=== PATIENT | female | born 1970 | race Caucasian/White ===

== ENCOUNTER 2017-07-10 07:52 | Emergency (ER) | payer MEDICAID ==
[2017-07-10 07:53] VITALS: BMI 25.6
[2017-07-10 08:05] VITALS: RESP 16; TEMP 97.7
--- NOTE | 2017-07-10 08:42 | ED PDOC ---
Arrival/HPI - General Chief Complaint: Female Genitourinary Time Seen by Provider: 07/10/17 08:12 Historian: Patient - History of Present Illness Narrative History of Present Illness (Text): 07/10/17 13:44 A 47 year old female, whose past medical history includes UTI, kidney stones, and nephronophthisis, presents to the emergency department for dysuria, which began 2 days ago. The patient denies any blood in the urine, nausea, vomiting, vaginal discharge, vaginal bleeding, or any other complaints at this time. Time/Duration: < week (x 3 days ) Symptom Onset: Gradual Symptom Course: Unchanged Quality: Burning Context: Home Past Medical History - Provider Review Nursing Documentation Reviewed: Yes - Infectious Disease Hx of Infectious Diseases: None - Tetanus Immunization Tetanus Immunization: Unknown - Past Medical History Past Medical History: No Previous - Cardiac Hx Cardiac Disorders: No - Pulmonary Hx Respiratory Disorders: No - Neurological Hx Neurological Disorder: No - HEENT Hx HEENT Disorder: No - Renal Hx Kidney Stones: Yes - Endocrine/Metabolic Hx Endocrine Disorders: No - Hematological/Oncological Hx Blood Disorders: No - Integumentary Hx Dermatological Disorder: No - Musculoskeletal/Rheumatological Hx Musculoskeletal Disorders: No Hx Falls: No - Gastrointestinal Hx Gastrointestinal Disorders: No - Genitourinary/Gynecological Hx Genitourinary Disorders: Yes Hx Urinary Tract Infection: Yes - Psychiatric Hx Psychophysiologic Disorder: Yes Hx Depression: Yes Hx Emotional Abuse: No Hx Physical Abuse: No Hx Substance Use: No - Surgical History Hx Hysterectomy: Yes (2006) Other/Comment: c section - Suicidal Assessment Feels Threatened In Home Enviroment: No Family/Social History - Physician Review Nursing Documentation Reviewed: Yes Family/Social History: No Known Family HX Smoking Status: Heavy Smoker > 10 Cigarettes Daily Hx Alcohol Use: No Hx Substance Use: No Allergies/Home Meds Allergies/Adverse Reactions: Allergies No Known Allergies Allergy (Verified 03/06/15 20:50) Review of Systems - Physician Review All systems were reviewed & negative as marked: Yes - Review of Systems Gastrointestinal: absent: Nausea, Vomiting Genitourinary Female: Dysuria. absent: Hematuria, Vaginal Bleeding, Vaginal Discharge Physical Exam Vital Signs Reviewed: Yes Vital Signs Temp Pulse Resp BP Pulse Ox 07/10/17 09:29 73 16 114/70 99 07/10/17 08:02 97.7 F 72 16 119/77 98 Temperature: Afebrile Blood Pressure: Normal Pulse: Regular Respiratory Rate: Normal Appearance: Positive for: Well-Appearing, Non-Toxic, Comfortable Pain Distress: None Mental Status: Positive for: Alert and Oriented X 3 - Systems Exam Head: Present: Atraumatic, Normocephalic Pupils: Present: PERRL Extroacular Muscles: Present: EOMI Conjunctiva: Present: Normal Mouth: Present: Moist Mucous Membranes Neck: Present: Normal Range of Motion Respiratory/Chest: Present: Clear to Auscultation, Good Air Exchange. No: Respiratory Distress, Accessory Muscle Use Cardiovascular: Present: Regular Rate and Rhythm, Normal S1, S2. No: Murmurs Abdomen: Present: Normal Bowel Sounds. No: Tenderness, Distention, Peritoneal Signs Back: Present: Normal Inspection Upper Extremity: Present: Normal Inspection. No: Cyanosis, Edema Lower Extremity: Present: Normal Inspection. No: Edema Neurological: Present: GCS=15, CN II-XII Intact, Speech Normal Skin: Present: Warm, Dry, Normal Color. No: Rashes Psychiatric: Present: Alert, Oriented x 3, Normal Insight, Normal Concentration Medical Decision Making ED Course and Treatment: 07/10/17 08:41 Impression: A 47 year old female with burning when urinating for 3 days. Differential Diagnosis included but are not limited to: Plan: -- Urine culture -- Urinalysis -- Reassess and disposition Progress Notes: - Lab Interpretations Lab Results: Lab Results 07/10/17 08:36: Urine Color Yellow, Urine Appearance Clear, Urine pH 6.0, Ur Specific [place] 1.025, Urine Protein Negative, Urine Glucose (UA) Negative, Urine Ketones Negative, Urine Blood Large H, Urine Nitrate Negative, Urine Bilirubin Negative, Urine Urobilinogen 0.2, Ur Leukocyte Esterase Negative, Urine RBC 5 - 10, Urine WBC 0 - 2, Ur Epithelial Cells 10 - 12 - Scribe Statement The provider has reviewed the documentation as recorded by the Azucena Deleon Provider Scribe Attestation: All medical record entries made by the Scribe were at my direction and personally dictated by me. I have reviewed the chart and agree that the record accurately reflects my personal performance of the history, physical exam, medical decision making, and the department course for this patient. I have also personally directed, reviewed, and agree with the discharge instructions and disposition. Disposition/Present on Arrival - Present on Arrival Any Indicators Present on Arrival: No History of DVT/PE: No History of Uncontrolled Diabetes: No Urinary Catheter: No History of Decub. Ulcer: No History Surgical Site Infection Following: None - Disposition Have Diagnosis and Disposition been Completed?: Yes Diagnosis: Cystitis Disposition: HOME/ ROUTINE Disposition Time: 09:10 Condition: GOOD Discharge Instructions (ExitCare): Urinary Tract Infection in Women (ED) Additional Instructions: Thank you for letting us take care of you today. The emergency medical care you received today was directed at your acute symptoms. If you were prescribed any medication, please fill it and take as directed. It may take several days for your symptoms to resolve. Return to the Emergency Department if your symptoms worsen, do not improve, or if you have any other problems. Please contact your doctor or call one of the physicians/clinics you have been referred to that are listed on the Patient Visit Information form that is included in your discharge packet. Bring any paperwork you were given at discharge with you along with any medications you are taking to your follow up visit. Our treatment cannot replace ongoing medical care by a primary care provider (PCP) outside of the emergency department. [facility]. Follow up with your doctor or the clinic in 2-3 days for re-evaluation and further management. Prescriptions: Ibuprofen [Motrin] 600 mg PO Q6 PRN #20 tab PRN Reason: Pain, Moderate (4-7) Nitrofurantoin Macrocrystals [Macrobid] 100 mg PO BID #10 cap Referrals: [facility] [Outside] - [place] up with [place] [facility] [place] - Follow up with primary Forms: [employer] (Scottish)
[2017-07-10 08:48] LABS: URINE BILIRUBIN NEGATIVE (NEGATIVE); URINE BLOOD LARGE (NEGATIVE); URINE GLUCOSE (UA) NEGATIVE (NEGATIVE); URINE LEUKOCYTE ESTERASE NEGATIVE Leu/uL (NEGATIVE); URINE NITRATE NEGATIVE (NEGATIVE); URINE PROTEIN NEGATIVE mg/dL (<30 mg/dL); URINE UROBILINOGEN 0.2 E.U./dL (<1 E.U./dL)
[2017-07-10 08:56] LABS: URINE APPEARANCE CLEAR (CLEAR); URINE COLOR YELLOW (YELLOW)
[2017-07-10 09:03] LABS: URINE WBC 0 - 2 /hpf (0-6)
[2017-07-10 09:30] VITALS: BP 114/70; PULSE 73; O2SAT 99
== END 2017-07-10 09:43 | disposition home or self-care (01) ==
LOC: ED 07:52
DX: N30.90 Cystitis, unspecified without hematuria (principal)

== ENCOUNTER 2018-02-18 09:54 | Emergency (ER) | payer MEDICAID ==
[2018-02-18 09:54] VITALS: BMI 25.6
--- NOTE | 2018-02-18 10:48 | ED PDOC ---
Arrival/HPI - General Chief Complaint: Female Genitourinary Time Seen by Provider: 02/18/18 10:43 Historian: Patient - History of Present Illness Narrative History of Present Illness (Text): 02/18/18 10:48 47 year old female, whose past medical history includes UTI, kidney stones, and nephronophthisis, presents to the emergency department complaining of sudden onset of right flank pain that began today morning. She reports the pain is non- radiating. 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 Patient reports similar symptoms in the past when she was diagnosed with kidney stones. Patient denies any pain currently and states pain resolved. Denies chest pain or cough or shortness of breath. Patient reports sensation of urinary frequency. Denies hematuria. Denies abdominal pain currently. Denies bloody urine or stool. Denies rash. Denies leg pain or swelling. PMD: Dr. Ja Zambrano 02/18/18 15:51 Symptom Onset: Sudden Symptom Course: Intermittent Activities at Onset: Light Context: Home Past Medical History - Provider Review Nursing Documentation Reviewed: Yes - Infectious Disease Hx of Infectious Diseases: None - Tetanus Immunization Tetanus Immunization: Unknown - Past Medical History Past Medical History: No Previous - Cardiac Hx Cardiac Disorders: No - Pulmonary Hx Respiratory Disorders: No - Neurological Hx Neurological Disorder: No - HEENT Hx HEENT Disorder: No - Renal Hx Kidney Stones: Yes - Endocrine/Metabolic Hx Endocrine Disorders: No - Hematological/Oncological Hx Blood Disorders: No - Integumentary Hx Dermatological Disorder: No - Musculoskeletal/Rheumatological Hx Musculoskeletal Disorders: No Hx Falls: No - Gastrointestinal Hx Gastrointestinal Disorders: No - Genitourinary/Gynecological Hx Genitourinary Disorders: Yes Hx Urinary Tract Infection: Yes - Psychiatric Hx Psychophysiologic Disorder: Yes Hx Depression: Yes Hx Emotional Abuse: No Hx Physical Abuse: No Hx Substance Use: No - Surgical History Hx Hysterectomy: Yes (2006) Other/Comment: c section - Suicidal Assessment Feels Threatened In Home Enviroment: No Family/Social History - Physician Review Nursing Documentation Reviewed: Yes Family/Social History: No Known Family HX Smoking Status: Heavy Smoker > 10 Cigarettes Daily Hx Alcohol Use: No Hx Substance Use: No Allergies/Home Meds Allergies/Adverse Reactions: Allergies No Known Allergies Allergy (Verified 02/18/18 09:58) Review of Systems - Review of Systems Constitutional: Fatigue. absent: Fevers, Other (Chills) Eyes: absent: Vision Changes, Eye Pain ENT: absent: Voice Changes, Sore Throat, Rhinorrhea Respiratory: absent: SOB, Cough Cardiovascular: absent: Chest Pain, Edema, ZEE Gastrointestinal: Abdominal Pain (Right flank pain), Nausea. absent: Diarrhea, Vomiting, Hematochezia Genitourinary Female: Dysuria, Frequency. absent: Hematuria, Urine Output Changes, Vaginal Bleeding, Vaginal Discharge Musculoskeletal: Back Pain. absent: Neck Pain Skin: absent: Rash Neurological: absent: Headache, Dizziness, Focal Weakness Endocrine: absent: Polyuria, Polydipsia Physical Exam - Physical Exam Narrative Physical Exam (Text): Head: Atraumatic. Normocephalic. Eyes: PERRL. EOMI. Conjunctivae are not pale. ENT: Mucous membranes are moist and intact. Oropharynx is clear and symmetric. Neck: Supple. Full ROM. No JVD. No lymphadenopathy. Cardiovascular: Regular rate. Regular rhythm. No murmurs, rubs, or gallops. Distal pulses are 2+ and symmetric. Pulmonary/Chest: No evidence of respiratory distress. Clear to auscultation bilaterally. No wheezing, rales or rhonchi. Chest wall nontender. Abdominal: Soft and non-distended. There is no tenderness. No rebound, guarding, or rigidity. No organomegaly. Good bowel sounds. Back: No CVA tenderness. Extremities: No edema. No cyanosis. No clubbing. Full range of motion in all extremities. No calf tenderness. Skin: Skin is warm and dry. No petechiae. No purpura. Neurological: Alert, awake, and oriented. Motor and sensory exam intact. Psychiatric: Good eye contact. Normal interaction, affect, and behavior. Vital Signs Reviewed: Yes Vital Signs Temp Pulse Resp BP Pulse Ox 02/18/18 13:44 97.0 F L 70 18 109/70 99 02/18/18 13:00 97.9 F 70 18 99 02/18/18 10:04 97.9 F 63 19 103/63 98 Temperature: Afebrile Blood Pressure: Normal Pulse: Regular Respiratory Rate: Normal Appearance: Positive for: Well-Appearing, Non-Toxic, Comfortable Pain Distress: None Mental Status: Positive for: Alert and Oriented X 3 Medical Decision Making ED Course and Treatment: 02/18/18 10:48 Impression: 47 year old female presents complaining of sudden onset of right sided flank pain associated with nausea, urinary frequency and dysuria. Patient's past medical history includes kidney stones. HER PAIN IS RESOLVED ON INITIAL EVALUATION. Differential Diagnosis included but are not limited to: Pyelonephritis VS Kidney Stone VS Gallstones Plan: -- CT Abd & Pelvis w/o contrast -- Labs -- IV Fluids -- POC Urine Preg test -- Urinalysis -- Transvaginal US -- Reassess and disposition Prior Visits: Notes and results from previous visits were reviewed. Patient was last seen in the emergency department on 07/10/17 presents complaining of dysuria which began 2 days ago. Patient was discharged. Progress Notes: Patient is afebile. No chest pain or shortness of breath. No respiratory distrses. Lungs clear. PROCEDURE: CT Abdomen and Pelvis without intravenous contrast Dictator : Julia Irvin MD Report Date : 02/18/2018 11:49:38 IMPRESSION: 7.0 x 4.6 cm cystic mass in the right adnexa may represent ovarian cysts, cystadenoma or cystadenocarcinoma. Correlation with pelvic ultrasound is recommended for further characterization. No CT evidence for right nephrolithiasis, hydronephrosis or obstructive uropathy. No evidence for acute appendicitis. CT findings reviewed with patient. Ultrasound ordered. PROCEDURE: Transvaginal US Dictator : Julia Irvin MD Report Date : 02/18/2018 13:15:55 IMPRESSION: 8.1 x 6.5 x 5.8 cm cystic mass in the right ovary likely represents a simple cyst. No evidence for torsion. Follow-up ultrasound in three-month interval is recommended to assess stability/resolution. Given large size of the cyst, cystadenoma and cystadenocarcinoma are also other imaging differential diagnosis. Clinical follow-up is advised. Gynecologic consult is recommended. 02/18/18 13:26 On re-evaluation, patient's symptoms have completely resolved of pain. She has been advised in layman's term of results of US and CT Scan. I have stressed the need to follow up with computer support technician and risk of noncompliance have been discussed with patient. Patient expressed understanding of this. Patient in agreement with plan to be discharged home with instructions to follow up with PMD as well. I have stressed to patient that cancer cannot be completely excluded and that she must follow-up with computer support technician. UA reviewed. She has negative nitrates and leukocytes. She has no fever. No flank pain. Currently denies any dysuria. Stressed need for follow-up. Patient is requesting to be discharged. - Lab Interpretations Lab Results: 02/18/18 11:15 02/18/18 11:15 Lab Results 02/18/18 11:15: Sodium 141, Potassium 4.3, Chloride 106, Carbon Dioxide 25, Anion Gap 14, BUN 11, Creatinine 0.6 L, Est GFR ( Amer) > 60, Est GFR ( Non-Af Amer) > 60, Random Glucose 94, Calcium 8.9, Total Bilirubin 0.5, AST 15, ALT 19, Alkaline Phosphatase 36 L, Total Protein 7.0, Albumin 4.2, Globulin 2.8 , Albumin/Globulin Ratio 1.5 02/18/18 11:15: WBC 6.1, RBC 4.82, Hgb 14.2, Hct 41.8, MCV 86.7, MCH 29.5, MCHC 34.0, RDW 13.0, Plt Count 250, MPV 10.1, Gran % 68.2 H, Lymph % (Auto) 26.1, [place] % (Auto) 5.0, Eos % (Auto) 0.5 L, Baso % (Auto) 0.2, Gran # 4.14, Lymph # ( Auto) 1.6, [place] # (Auto) 0.3, Eos # (Auto) 0.0, Baso # (Auto) 0.01 02/18/18 10:09: Urine Color Yellow, Urine Appearance Turbid, Urine pH 5.5, Ur Specific [place] >= 1.030, Urine Protein Trace H, Urine Glucose (UA) Negative, Urine Ketones Negative, Urine Blood Large H, Urine Nitrate Negative, Urine Bilirubin Negative, Urine Urobilinogen 0.2, Ur Leukocyte Esterase Negative, Urine RBC 25 - 30, Urine WBC 0 - 2, Ur Epithelial Cells 3 - 4, Urine Bacteria Trace I have reviewed the lab results: Yes - RAD Interpretation Radiology Orders: 02/18/18 10:50 ABD & PELVIS W/O PO OR IV CONT [CT] Stat 02/18/18 11:55 TRANSVAGINAL [US] Stat - Medication Orders Current Medication Orders: Discontinued Medications Sodium Chloride (Sodium Chloride 0.9%) 1,000 mls @ 100 mls/hr IV .Q10H ZEFERINO Last Admin: 02/18/18 11:06 Dose: 100 mls/hr eMAR Start Stop Document 02/18/18 11:06 [email or web address] (Rec: 02/18/18 12:12 [email or web address] [id number]) Intravenous Solution Start Date 02/18/18 Start Time 11:06 - Scribe Statement The provider has reviewed the documentation as recorded by the Azucena Montaño Provider Scribe Attestation: All medical record entries made by the Scribe were at my direction and personally dictated by me. I have reviewed the chart and agree that the record accurately reflects my personal performance of the history, physical exam, medical decision making, and the department course for this patient. I have also personally directed, reviewed, and agree with the discharge instructions and disposition. Disposition/Present on Arrival - Present on Arrival Any Indicators Present on Arrival: No History of DVT/PE: No History of Uncontrolled Diabetes: No Urinary Catheter: No History of Decub. Ulcer: No History Surgical Site Infection Following: None - Disposition Have Diagnosis and Disposition been Completed?: Yes Diagnosis: Flank pain, Abdominal pain, Ovarian mass, Ovarian cyst Disposition: HOME/ ROUTINE Disposition Time: 13:30 Condition: GOOD Discharge Instructions (ExitCare): Ovarian Cysts, Acute Abdomen (Belly Pain), Adult (DC), Flank Pain (DC) Additional Instructions: You have an abnormal pelvic ultrasound that requires re-evaluation by a computer support technician. Your ultrasound is also suggestive of possible ovarian cyst. RETURN TO ER IMMEDIATELY if pain returns, or if you have any nausea, any vomiting, any chest pain or shortness of breath, any headaches or dizziness, any abnormal bleeding or discharge, any persistent or worsening of any symptoms. Prescriptions: Naproxen 250 mg PO BID PRN #10 tablet PRN Reason: Pain, Mild (1-3) Referrals: Luis Resendiz [Medical Doctor] - Follow up with primary Gina Zambrano MD [Primary Care Provider] - Follow up with primary Forms: [employer] (Macedonian)
[2018-02-18] MEDS ORDERED: Sodium Chloride 0.9% 1,000 ML IV SCH (11:00)
[2018-02-18 11:33] LABS: BASO # 0.01 K/mm3 (0.0-2.0); BASO % 0.2 % (0.0-3.0); EOS % 0.5 % (1.5-5.0); GRAN # 4.14 (1.4-6.5); GRAN % 68.2 % (50.0-68.0); HEMOGLOBIN 14.2 g/dL (12.0-16.0); LYMPH # 1.6 (1.2-3.4); LYMPH % 26.1 % (22.0-35.0); MEAN CELL VOLUME 86.7 fl (80.0-105.0); MEAN CORPUSCULAR HEMOGLOBIN 29.5 pg (25.0-35.0); MEAN PLATELET VOLUME 10.1 fl (7.0-11.0); MONO # 0.3 (0.1-0.6); RBC 4.82 10^6/uL (3.5-6.1); WHITE BLOOD COUNT 6.1 10^3/ul (4.5-11.0)
[2018-02-18 11:38] LABS: ALB/GLOB RATIO 1.5 (1.1-1.8); ALBUMIN 4.2 g/dL (3.0-4.8); ALT/SGPT 19 U/L (7-56); AST/SGOT 15 U/L (14-36); BLOOD UREA NITROGEN 11 mg/dL (7-21); CALCIUM 8.9 mg/dL (8.4-10.5); GFR NON-AFRICAN AMERICAN > 60
--- NOTE | 2018-02-18 11:51 | CT ---
Date of service: 02/18/2018 PROCEDURE: CT Abdomen and Pelvis without intravenous contrast HISTORY: right flank pain COMPARISON: None. TECHNIQUE: CT scan of the abdomen and pelvis was performed without administration of intravenous contrast. Oral contrast was not administered. Coronal and sagittal reformatted images were obtained. . Radiation dose: Total exam DLP = 378.50 mGy-cm. This CT exam was performed using one or more of the following dose reduction techniques: Automated exposure control, adjustment of the mA and/or kV according to patient size, and/or use of iterative reconstruction technique. FINDINGS: LOWER THORAX: The visualized lungs are clear. LIVER: Normal in size. No intrahepatic ductal dilatation. GALLBLADDER AND BILE DUCTS: No calcified gallstones. No biliary dilatation. There is layering sludge in the gallbladder. PANCREAS: Normal in size. No ductal dilatation. SPLEEN: Normal in size. ADRENALS: Normal in size. No discrete nodule. KIDNEYS AND URETERS: Normal in size without nephrolithiasis. No hydronephrosis. VASCULATURE: No aortic aneurysm. BOWEL: The small bowel loops are normal in caliber. The colon is normal in size. No bowel dilatation or wall thickening. No bowel obstruction. APPENDIX: Normal appendix. PERITONEUM: No free fluid. No free air. LYMPH NODES: No enlarged lymph nodes. BLADDER: Well distended and grossly normal in appearance. REPRODUCTIVE: The uterus is normal in size. There is a 7.0 x 4.6 cm cystic mass in the right adnexa. BONES: No acute fracture. OTHER FINDINGS: None. IMPRESSION: 7.0 x 4.6 cm cystic mass in the right adnexa may represent ovarian cysts, cystadenoma or cystadenocarcinoma. Correlation with pelvic ultrasound is recommended for further characterization. No CT evidence for right nephrolithiasis, hydronephrosis or obstructive uropathy. No evidence for acute appendicitis.
--- NOTE | 2018-02-18 13:17 | US ---
Date of service: 02/18/2018 HISTORY: right adnexal mass COMPARISON: None available. TECHNIQUE: Transvaginal pelvic ultrasound was performed. FINDINGS: UTERUS: Status post partial hysterectomy. CERVIX: Simple and complicated nabothian cysts. RIGHT OVARY: Measures 3.5 x 3.2 x 2.0 cm. No solid mass. Normal flow. There is a large 8.1 x 6.5 x 5.8 cm simple cyst. Also noted is a 1.5 x 1.4 x 1.1 cm simple cyst. LEFT OVARY: Measures 3.6 x 3.8 x 2.3 cm. No solid mass. Normal flow. There is a 2.2 x 1.9 x 1.4 cm complicated/ hemorrhagic cyst. FREE FLUID: No significant free fluid noted. OTHER FINDINGS: None. IMPRESSION: 8.1 x 6.5 x 5.8 cm cystic mass in the right ovary likely represents a simple cyst. No evidence for torsion. Follow-up ultrasound in three-month interval is recommended to assess stability/resolution. Given large size of the cyst, cystadenoma and cystadenocarcinoma are also other imaging differential diagnosis. Clinical follow-up is advised. Gynecologic consult is recommended.
[2018-02-18 13:39] LABS: PH,URINE 5.5 (4.7-8.0); URINE BILIRUBIN NEGATIVE (NEGATIVE); URINE BLOOD LARGE (NEGATIVE); URINE GLUCOSE (UA) NEGATIVE (NEGATIVE); URINE LEUKOCYTE ESTERASE NEGATIVE Leu/uL (NEGATIVE); URINE PROTEIN TRACE mg/dL (<30 mg/dL); URINE UROBILINOGEN 0.2 E.U./dL (<1 E.U./dL)
[2018-02-18 13:43] VITALS: PULSE 70; RESP 18; O2SAT 99
[2018-02-18 13:45] VITALS: BP 109/70; TEMP 97
[2018-02-18 13:45] LABS: URINE APPEARANCE TURBID (CLEAR); URINE COLOR YELLOW (YELLOW)
[2018-02-18 13:53] LABS: URINE BACTERIA TRACE (NEG); URINE RBC 25 - 30 /hpf (0-2); URINE WBC 0 - 2 /hpf (0-6)
== END 2018-02-18 13:45 | disposition home or self-care (01) ==
LOC: ED 09:54
DX: R10.9 Unspecified abdominal pain (principal); N83.201 Unspecified ovarian cyst, right side; N83.8 Other noninflammatory disorders of ovary, fallopian tube and broad ligament; F17.210 Nicotine dependence, cigarettes, uncomplicated
CPT/HCPCS: 74176; 76830; 80053; 81001; 85025; 99284; J7030